=== PATIENT | female | born 1975 | race Caucasian/White ===

== ENCOUNTER 2016-11-10 20:58 | Emergency (ER) | payer OTHER ==
[2016-11-10 21:03] VITALS: BP 150/97; BMI 22.5
--- NOTE | 2016-11-10 21:32 | DR.GENAD ---
HPI - PCP Primary Care Physician: JUSTA - HPI Comment HPI Comment: HISTORY BELOW. - Complaint/Symptoms Chief Complaint Doctors Comments: RIGHT FLANK AND LOWER BACK PAIN TIMES 2 DAYS. PATIENT HAVE HEMATURIA ALSO. PAIN WORSE TONIGHT. NO FEVER. URINE HAS ODOR.HISTORY KIDNEY STONE. Chief Complaint:: RIGHT FLANK PAIN, LOWER BACK PAIN, HEMATURIA FOR 2 DAYS, STRONG ODOR TO URINE. Self Treatment fo Chief Complaint: HYDROCODONE - Nurses notes reviewed Nurses Notes Review: Yes - Source History Provided: Patient - Mode of Arrival Mode of Arrival: Ambulatory - Timing Onset of Chief Complaint: 11/08/16 Came on: Suddenly - Duration Duration: Constant Duration: Days - Severity Severity: Moderate PMH - PMH Past Medical History: Yes Past Medical History: Kidney Stones Past Medical History Comment: BACK PAIN DUE TO DISC OUT. CYST ON OVARIES Past Surgical History: Yes Surgical History: METAL FINISHER Surgery Past Surgical History Comment: REMOVE CYST ON OVARIES - Family History History of Family Medical Conditions: No - Social History Does patient currently use any type of tobacco product: No Have you used tobacco products in the last 12 months: No Type of Tobacco Use: None Does any household member use tobacco: No Alcohol Use: None Do you use any recreational Drugs:: No Lives With: Family Lives Where: Home - infectious screening Have you traveled outside the country in the last 6 months?: No Isolation: Standard ROS - Review of Systems Constitutional: No Symptoms Reported Eyes: No Symptoms Reported ENTM: No Symptoms Reported Respiratoy: No Symptoms Reported Cardiovascular: No Symptoms Reported Gastrointestinal/Abdominal: No Symptoms Reported Genitourinary: Hematuria Neurological: No Symptoms Reported Musculoskeletal: Back Pain, Other (RIGHT FLANK PAIN.) Integumentary: No Symptoms Reported Hematologic/Lymphatic: No Symptoms Reported Endocrine: No Symptoms Reported All Other Systems: Reviewed and Negative PE - Vital Signs Vitals: Temperature 98.0 F Pulse Rate 84 Respiratory Rate 18 Blood Pressure 150/97 O2 Sat by Pulse Oximetry 100 - General Limitations: No Limitations General Appearance: Alert - Head Head Exam: Normal Inspection - Eyes Eye exam: Normal Appearance - ENT ENT Exam: Normal External Ear Exam External Ear Exam: Normal External Inspection TM/Canal Exam: Bilateral Normal Nose Exam: Normal Nose Exam Mouth Exam: Normal Inspection Throat Exam: Normal Inspection - Neck Neck Exam: Trachea Midline - Chest Chest Inspection: Symmetric Chest Wall Rise - Respiratory Respiratory Exam: Normal Lung Sounds Bilat Respiratory Exam: Bilateral Clear to Auscultation - Cardiovascular Cardiovascular Exam: Regular Rate, Normal Rhythm, Normal Heart Sounds - Abdominal Exam Abdominal Exam: Normal Bowel Sounds, Soft. negative: Tenderness - Back Back Exam: (R) CVA Tenderness - Neurologic Neurological Exam: Alert, Oriented X3 - Psychiatric Psychiatric Exam: Normal Affect, Normal Mood - Skin Skin Exam: Normal Color MDM - Differential Diagnosis Differential Diagnosis: KIDNEY STONE, PYELONEPHRITIS, UTI, HEMATURIA Course - Treatment Treatment: SEE ORDERS. - Education/Counseling Education/Counseling: Patient, Education Educated On: Treatment, Diagnosis, Needs for Follow Up ROR - Labs Reviewed Laboratory Results Reviewed?: Yes Result Diagrams: 11/10/16 21:47 11/10/16 21:47 Laboratory: WBC 8.7 X10^3/uL (3.6-10.0) 11/10/16 21:47 RBC 4.39 X10^6/uL (3.5-5.4) 11/10/16 21:47 Hgb 13.9 g/dL (12.0-16.0) 11/10/16 21:47 Hct 39.9 % (36.0-47.0) 11/10/16 21:47 MCV 90.7 fL (80.0-100.0) 11/10/16 21:47 MCH 31.6 pg (27.0-34.0) 11/10/16 21:47 MCHC 34.8 g/dL (33.0-35.0) 11/10/16 21:47 RDW 12.4 % (11.6-16.5) 11/10/16 21:47 Plt Count 226 X10^3/uL (150.0-450.0) 11/10/16 21:47 MPV 8.4 fL (7.4-11.0) 11/10/16 21:47 Neut % 53.2 % (42.0-75.0) 11/10/16 21:47 Lymph % 36.8 % (21.0-51.0) 11/10/16 21:47 Wilkinson % 7.5 % (0.0-13.0) 11/10/16 21:47 Eos % 1.8 % (0.9-2.9) 11/10/16 21:47 Baso % 0.7 % (0.2-1.0) 11/10/16 21:47 Neut # 4.6 x10^3/uL (2.2-4.8) 11/10/16 21:47 Lymph # 3.2 X10^3/uL (1.3-2.9) H 11/10/16 21:47 Wilkinson # 0.7 x10^3/uL (0.3-0.8) 11/10/16 21:47 Eos # 0.2 x10^3/uL (0.0-0.2) 11/10/16 21:47 Baso # 0.1 X10^3/uL (0.0-0.1) 11/10/16 21:47 Absolute Nucleated RBC 0.0 /100WBC 11/10/16 21:47 Sodium 142 mmol/L (136-145) 11/10/16 21:47 Corrected Sodium TNP 11/10/16 21:47 Potassium 3.9 mmol/L (3.5-5.1) 11/10/16 21:47 Chloride 105 mmol/L (98-107) 11/10/16 21:47 Carbon Dioxide 31.5 mmol/L (21-32) 11/10/16 21:47 BUN 17 mg/dL (7-18) 11/10/16 21:47 Creatinine 0.75 mg/dL (0.55-1.02) 11/10/16 21:47 Est GFR (MDRD) Af Amer > 60 (>60) 11/10/16 21:47 Est GFR (MDRD) Non-Af > 60 (>60) 11/10/16 21:47 Glucose 92 mg/dL (65-99) 11/10/16 21:47 Calcium 8.4 mg/dL (8.5-10.1) L 11/10/16 21:47 Corrected Calcium TNP 11/10/16 21:47 Total Bilirubin 0.20 mg/dL (0.2-1.0) 11/10/16 21:47 AST 19 Units/L (15-37) 11/10/16 21:47 ALT 21 Units/L (12-78) 11/10/16 21:47 Alkaline Phosphatase 64 Units/L (46-116) 11/10/16 21:47 Total Protein 7.1 g/dL (6.4-8.2) 11/10/16 21:47 Albumin 3.8 g/dL (3.4-5.0) 11/10/16 21:47 Globulin 3.3 g/dL (2.5-4.5) 11/10/16 21:47 Albumin/Globulin Ratio 1.2 Ratio (1.1-2.1) 11/10/16 21:47 Specimen Type Clean catch urine 11/10/16 21:26 Urine Color Yellow (YELLOW) 11/10/16 21:26 Urine Appearance Clear (CLEAR) 11/10/16 21:26 Urine pH 6.5 (5.0 - 8.0) 11/10/16 21:26 Ur Specific Kinsman 1.015 (1.000-1.030) 11/10/16 21:26 Urine Protein Negative (NEGATIVE) 11/10/16 21:26 Urine Glucose (UA) Negative (NEGATIVE) 11/10/16 21:26 Urine Ketones Negative (NEGATIVE) 11/10/16 21:26 Urine Occult Blood 3+ (NEGATIVE) 11/10/16 21:26 Urine Nitrite Negative (NEGATIVE) 11/10/16 21:26 Urine Bilirubin Negative (NEGATIVE) 11/10/16 21:26 Urine Urobilinogen Normal (NORMAL) 11/10/16 21:26 Ur Leukocyte Esterase Negative (NEGATIVE) 11/10/16 21:26 Urine RBC 5-7 /HPF (NEGATIVE) 11/10/16 21:26 Urine WBC 2-3 /HPF (NEGATIVE) 11/10/16 21:26 Ur Squamous Epith Cells Few /HPF (NEGATIVE) 11/10/16 21:26 Urine Bacteria 1+ /HPF (NEGATIVE) 11/10/16 21:26 Ur Culture Indicated? No/not indicated 11/10/16 21:26 - XRAY XRAY Interpreted by: Radiologist XRAY Findings: REPORT DISCUSS WITH PATIENT. - Diagnosis Discharge Problem: Right flank pain Lower back pain Qualifiers: Chronicity: acute Back pain laterality: right Sciatica presence: without sciatica Qualified Code(s): M54.5 - Low back pain - Discharge Plan Disposition: 01 HOME, SELF-CARE Condition: Stable Prescriptions: Ketorolac Tromethamine [Toradol Tab] 10 mg PO Q8H PRN #15 tab PRN Reason: Pain Ondansetron HCl [Zofran Tab 4 mg] 4 mg PO Q8H PRN #12 tab PRN Reason: Nausea/Vomiting - Follow ups/Referrals Follow ups/Referrals: MICAH MARR [Primary Care Provider] - 3 days - Instructions Instructions: Flank Pain, Back Pain, Adult, [id number] Additional Instructions: return to ed if worse.
[2016-11-10] MEDS ORDERED: NS 1000 ML 1,000 ML ONE (21:36)
[2016-11-10] MEDS ORDERED: TORADOL 30 MG VIAL ONE (21:37)
[2016-11-10] MEDS ORDERED: ZOFRAN INJ 4 MG VIAL ONE (21:37)
[2016-11-10 21:38] LABS: BILIRUBIN,URINE NEGATIVE (NEGATIVE); BLOOD/HEMOGLOBIN,URINE 3+ (NEGATIVE); GLUCOSE, URINE NEGATIVE (NEGATIVE); KETONES,URINE NEGATIVE (NEGATIVE); LEUKOCYTE ESTERASE ,URINE NEGATIVE (NEGATIVE); NITRITES,URINE NEGATIVE (NEGATIVE); PH,URINE 6.5 (5.0 - 8.0); PROTEIN,URINE NEGATIVE (NEGATIVE); UROBILINOGEN,URINE NORMAL (NORMAL)
[2016-11-10] MEDS ORDERED: TORADOL 30 MG VIAL IVP ONE (21:40)
[2016-11-10] MEDS ORDERED: NS 1000 ML 1,000 ML IV ONE (21:40)
[2016-11-10] MEDS ORDERED: ZOFRAN INJ 4 MG VIAL IVP ONE (21:40)
[2016-11-10 21:45] LABS: APPEARANCE,URINE CLEAR (CLEAR); BACTERIA,URINE 1+ /HPF (NEGATIVE); COLOR,URINE YELLOW (YELLOW); SQUAMOUS EPITHELIAL CELL,UR FEW /HPF (NEGATIVE)
[2016-11-10 21:58] LABS: BASOPHILS # (AUTO) 0.1 X10^3/uL (0.0-0.1); BASOPHILS % (AUTO) 0.7 % (0.2-1.0); EOSINOPHILS # (AUTO) 0.2 x10^3/uL (0.0-0.2); EOSINOPHILS % (AUTO) 1.8 % (0.9-2.9); HEMATOCRIT 39.9 % (36.0-47.0); HEMOGLOBIN 13.9 g/dL (12.0-16.0); LYMPHOCYTES # (AUTO) 3.2 X10^3/uL (1.3-2.9); LYMPHOCYTES % (AUTO) 36.8 % (21.0-51.0); MEAN CORPUSCULAR HEMOGLOBIN 31.6 pg (27.0-34.0); MEAN CORPUSCULAR HGB CONC 34.8 g/dL (33.0-35.0); MEAN CORPUSCULAR VOLUME 90.7 fL (80.0-100.0); MEAN PLATELET VOLUME 8.4 fL (7.4-11.0); MONOCYTES # (AUTO) 0.7 x10^3/uL (0.3-0.8); MONOCYTES % (AUTO) 7.5 % (0.0-13.0); NEUTROPHILS # (AUTO) 4.6 x10^3/uL (2.2-4.8); NEUTROPHILS % (AUTO) 53.2 % (42.0-75.0); PLATELET COUNT 226 X10^3/uL (150.0-450.0); RED BLOOD COUNT 4.39 X10^6/uL (3.5-5.4); RED CELL DISTRIBUTION WIDTH 12.4 % (11.6-16.5); WHITE BLOOD COUNT 8.7 X10^3/uL (3.6-10.0)
[2016-11-10 22:17] LABS: ALANINE AMINOTRANSFERASE 21 Units/L (12-78); ALBUMIN 3.8 g/dL (3.4-5.0); ALKALINE PHOSPHATASE 64 Units/L (46-116); ASPARTATE AMINO TRANSFERASE 19 Units/L (15-37); BLOOD UREA NITROGEN 17 mg/dL (7-18); CALCIUM 8.4 mg/dL (8.5-10.1); CARBON DIOXIDE 31.5 mmol/L (21-32); CHLORIDE 105 mmol/L (98-107); CREATININE 0.75 mg/dL (0.55-1.02); GLUCOSE 92 mg/dL (65-99); SODIUM 142 mmol/L (136-145); TOTAL PROTEIN 7.1 g/dL (6.4-8.2); eGFR BLACK RACES > 60 (>60); eGFR NON BLACK RACES > 60 (>60)
[2016-11-10] MEDS ORDERED: MORPHINE SULFATE INJ 4 MG ONE (22:31)
[2016-11-10] MEDS ORDERED: MORPHINE SULFATE INJ 4 MG IVP ONE ×2 (22:32→22:33)
--- NOTE | 2016-11-10 22:40 | CT ---
CT abdomen and pelvis without contrast Indication: Right flank and lower back pain with hematuria Comparison: None available Technique: Multiple axial images of the abdomen and pelvis were obtained from the lung bases to the pubic symph ysis without the administration of IV contrast. Radiation dose reduction techniques were performed utilizing adjustment for MA/kVP based on patient body size. Findings: The lung bases are clear. No focal hepatic lesion. The gallbladder, bile ducts, spleen, pancreas and adrenal glands are normal. The right kidney contains several punctate stones. No right-sided ureter al stone or hydronephrosis. The left kidney also contains a few punctate stones within the upper justin e without ureteral stone or hydronephrosis. Upper GI tract is without evidence of mass or obstructio n. Urinary bladder is normal. No discrete uterine mass. Enlarged cysts are noted within both adnexae a. The right adnexal cyst measures 4.1 cm in greatest dimension. The left adnexal cyst measures 2.5 cm. No significant pelvic free fluid identified. The rectum and colon are normal. The appendix is w ithin normal limits. Abdominal aorta is normal in caliber. Impression: 1.Bilateral punctate nonobstructing nephrolithiasis. 2. Bilateral adnexal cysts, clinical correlation is needed. 3. The appendix is normal. Reported By:
== END 2016-11-11 00:24 | disposition home or self-care (01) ==
LOC: ER 21:11
DX: R10.84 Generalized abdominal pain (principal); M54.5 Low back pain
CPT/HCPCS: 36415; 74176; 80053; 81001; 85025; 96365; 96374; 96375; 99283; A4222; J1885; J2270; J2405